=== PATIENT | female | born 1955 ===

== ENCOUNTER 2025-02-12 12:16 | Inpatient (IN) | payer OTHER ==
[~2025-02-12] VITALS: Ht 157.5 cm; Wt 67.6 kg
[2025-02-12] MEDS ORDERED: AMLODIPINE BESYL5 MG PO (12:50)
[2025-02-12] MEDS ORDERED: ZOLOFT50 MG PO (12:50)
[2025-02-12] MEDS ORDERED: LUMIGAN2.5 M1 (12:51)
[2025-02-12] MEDS ORDERED: BRINZOLAMIDE OP (12:51)
[2025-02-12] MEDS ORDERED: HORIZANT300 MG PO (12:51)
[2025-02-19] MEDS ORDERED: METRONIDAZOLE/SODIUM CHLORIDE 500 MG/100 ML PIGGYBACK IV ONE (15:15)
[2025-02-19] MEDS ORDERED: CEFTRIAXONE SODIUM 2,000 MG VIAL IV ONE (15:15)
[2025-02-19] MEDS ORDERED: THROMBIN,HU/FIBRINOGEN/CALCIUM 10 ML SYRINGE TOP ONE (16:15)
[2025-02-19] MEDS ORDERED: DEXTROSE 50 % IN WATER 0.5 G/ML VIAL IV PRN (16:45)
[2025-02-19] MEDS ORDERED: 0.9 % SODIUM CHLORIDE 1,000 ML IV SCH (16:45)
[2025-02-19] MEDS ORDERED: MORPHINE SULFATE 4 MG/ML CARTRIDGE IV PRN (16:45)
[2025-02-19] MEDS ORDERED: ONDANSETRON HCL 2 MG/ML VIAL IV PRN (16:45)
[2025-02-19] MEDS ORDERED: OxyCODONE HCL 5 MG TABLET (ROXICODONE) PO PRN (16:45)
[2025-02-19] MEDS ORDERED: POLYETHYLENE GLYCOL 3350 17 GM BLIST.PACK PO SCH (17:00)
[2025-02-19] MEDS ORDERED: GABAPENTIN 300 MG CAPSULE PO SCH (17:00)
[2025-02-19] MEDS ORDERED: MORPHINE SULFATE 4 MG/ML VIAL IV ONE (17:00)
[2025-02-19] MEDS ORDERED: METRONIDAZOLE/SODIUM CHLORIDE 500 MG/100 ML PIGGYBACK IV SCH (17:00)
[2025-02-19] MEDS ORDERED: HYOSCYAMINE SULFATE 0.125 MG TAB.SUBL SL SCH (17:00)
[2025-02-19] MEDS ORDERED: SUGAMMADEX SODIUM 200 MG/2 ML VIAL IV ONE (17:30)
[2025-02-19] MEDS ORDERED: ENALAPRILAT DIHYDRATE 1.25 MG/ML VIAL IV PRN (18:15)
[2025-02-19 18:56] LABS: BASO % 0.2 % (0.1-1.2); EOS # 0.04 (0.04-0.54); EOS % 0.2 % (0.7-7.0); LYMPH # 1.38 (1.18-3.74); LYMPH % 7.4 % (19.3-53.1); MEAN PLATELET VOLUME 9.00 fl (9.4-12.4); MONO # 1.22 (0.24-0.82); MONO % 6.6 % (4.7-12.5); NEUT # 15.86 (1.56-6.13); NEUT % 85.3 % (34.0-71.1); RED CELL DISTRIBUTION WIDTH 13.6 % (11.6-14.4)
[2025-02-19 19:15] LABS: BUN CREA RATIO 22.0 (7.0-25.0); CREATININE SERUM 0.46 mg/dL (0.55-1.02); GFR 134.29; GLUCOSE FASTING 156.0 mg/dL (65-100); OSMOLALITY SERUM 287.0 MOSM/KG (275-295)
[2025-02-19] MEDS ORDERED: ACETAMINOPHEN 500 MG GEL..CAP PO SCH (20:00)
[2025-02-19 20:30] VITALS: BP 100/65; O2SAT 98
[2025-02-19] MEDS ORDERED: FAMOTIDINE/PF 20 MG/2 ML VIAL IV PUSH SCH (21:00)
[2025-02-19] MEDS ORDERED: CELECOXIB 200 MG CAPSULE PO SCH (21:00)
[2025-02-20 06:57] LABS: BASO % 0.1 % (0.1-1.2); EOS # 0.00 (0.04-0.54); EOS % 0.0 % (0.7-7.0); LYMPH # 0.71 (1.18-3.74); LYMPH % 4.8 % (19.3-53.1); MEAN PLATELET VOLUME 9.30 fl (9.4-12.4); MONO # 0.91 (0.24-0.82); MONO % 6.1 % (4.7-12.5); NEUT # 13.13 (1.56-6.13); NEUT % 88.5 % (34.0-71.1); RED CELL DISTRIBUTION WIDTH 13.6 % (11.6-14.4)
[2025-02-20 07:38] LABS: BUN CREA RATIO 16.0 (7.0-25.0); CREATININE SERUM 0.51 mg/dL (0.55-1.02); GFR 119.22; GLUCOSE FASTING 142.0 mg/dL (65-100); OSMOLALITY SERUM 288.0 MOSM/KG (275-295)
[2025-02-20 08:00] VITALS: BP 107/72; O2SAT 97
[2025-02-20] MEDS ORDERED: AMLODIPINE BESYLATE 5 MG TABLET PO SCH (09:00)
[2025-02-20] MEDS ORDERED: PHENOL 177 ML BOTTLE MM SCH (09:00)
[2025-02-20] MEDS ORDERED: SERTRALINE HCL 50 MG TABLET PO SCH ×2 (13:30→17:00)
[2025-02-21 07:56] LABS: BASO % 0.3 % (0.1-1.2); EOS # 0.05 (0.04-0.54); EOS % 0.4 % (0.7-7.0); LYMPH # 1.95 (1.18-3.74); LYMPH % 17.2 % (19.3-53.1); MEAN PLATELET VOLUME 9.50 fl (9.4-12.4); MONO # 1.27 (0.24-0.82); MONO % 11.2 % (4.7-12.5); NEUT # 8.00 (1.56-6.13); NEUT % 70.5 % (34.0-71.1); RED CELL DISTRIBUTION WIDTH 13.9 % (11.6-14.4)
[2025-02-21 08:00] VITALS: BP 102/67; O2SAT 99
[2025-02-21 08:36] LABS: BUN CREA RATIO 17.0 (7.0-25.0); CREATININE SERUM 0.58 mg/dL (0.55-1.02); GFR 102.77; GLUCOSE FASTING 94.0 mg/dL (65-100); OSMOLALITY SERUM 286.0 MOSM/KG (275-295)
[2025-02-21] MEDS ORDERED: ENOXAPARIN SODIUM 40 MG/0.4 ML SYRINGE SUBCUTANEO SCH (09:00)
[2025-02-21] MEDS ORDERED: POTASSIUM PHOS,M-BASIC-D-BASIC 3 MM/ML VIAL IV NR (12:30)
[2025-02-21] MEDS ORDERED: Cyanocobalamin/Mecobalamin 1 TAB.SL SL NR (13:00)
[2025-02-21] MEDS ORDERED: SOD FERRIC GLUC COMPLX/SUCROSE 62.5 MG in 0.9 % SODIUM CHLORIDE 50 ML IV NR (13:00)
[2025-02-21 16:00] VITALS: BP 106/72; O2SAT 97
[2025-02-22 01:42] VITALS: BP 93/57; O2SAT 98
[2025-02-22] MEDS ORDERED: Cyanocobalamin/Mecobalamin 1 TAB.SL SL SCH (09:00)
[2025-02-22] MEDS ORDERED: SOD FERRIC GLUC COMPLX/SUCROSE 62.5 MG in 0.9 % SODIUM CHLORIDE 50 ML IV SCH (09:00)
[2025-02-22 09:56] VITALS: BP 106/71; O2SAT 99
[2025-02-22] MEDS ORDERED: INTEGRA F CAPS1 EACH PO (11:19)
[2025-02-22] MEDS ORDERED: HYOSCYAMINE0.125 M1 SL (11:19)
[2025-02-22] MEDS ORDERED: TRAM1TAB98 PO (11:20)
[2025-02-22] MEDS ORDERED: PEPCID AC20 MG PO (11:20)
== END 2025-02-22 13:26 | disposition home or self-care (01) | DRG 331 ==
LOC: SURH 02-19 12:45 → O/R 02-19 14:11 → SURG 02-19 18:11
PROVIDERS: Internal Medicine Geriatric Medicine; ADMIT Surgery; ATTEND Surgery
PROC: 0DBP4ZZ Excision of Rectum, Percutaneous Endoscopic Approach (ICD-10-PCS; 2025-02-19)
PROC: 0DJD8ZZ Inspection of Lower Intestinal Tract, Via Natural or Artificial Opening Endoscopic (ICD-10-PCS; 2025-02-19)
PROC: 0DTN4ZZ Resection of Sigmoid Colon, Percutaneous Endoscopic Approach (ICD-10-PCS; principal; 2025-02-19 13:30)
DX: K57.32 Diverticulitis of large intestine without perforation or abscess without bleeding (principal); N73.6 Female pelvic peritoneal adhesions (postinfective); D64.89 Other specified anemias; R19.4 Change in bowel habit; R10.32 Left lower quadrant pain; I10 Essential (primary) hypertension; E78.5 Hyperlipidemia, unspecified